=== PATIENT | male | born 1975 | race Caucasian/White ===

== ENCOUNTER 2022-12-25 12:19 | Emergency (ER) | payer SELFPAY ==
[~2022-12-25] VITALS: Ht 157.5 cm; Wt 88.0 kg
[2022-12-25 12:34] VITALS: BP 144/90
--- NOTE | 2022-12-25 12:40 | NUR ---
patient brought to room 12.
[2022-12-25] MEDS ORDERED: DICL20GE TP (13:03)
[2022-12-25] MEDS ORDERED: CYCL-711 PO (13:03)
[2022-12-25] MEDS ORDERED: NAPR-54 PO (13:03)
--- NOTE | 2022-12-25 13:14 | NUR ---
Patient discharged with v/s stable. Written and verbal after care instructions given and explained. Patient verbalized understanding. Ambulatory with steady gait. All questions addressed prior to discharge. Advised to follow up with PMD.
== END 2022-12-25 13:14 | disposition home or self-care (01) ==
LOC: MED 12:19
DX: M26.602 Left temporomandibular joint disorder, unspecified (principal)
CPT/HCPCS: 99283